=== PATIENT | female | born 1985 | race Caucasian/White ===

== ENCOUNTER → 2021-07-28 | Outpatient (CLI) | payer OTHER ==
--- NOTE | 2021-07-28 13:01 | RAD ---
EXAMINATION: MRI LEFT KNEE WITHOUT IV CONTRAST CLINICAL HISTORY: Left knee pain following injury. TECHNIQUE: Multiplanar multisequential images obtained through the knee without intravenous contrast. COMPARISON: 09/30/2005 FINDINGS: Images and motion degradation on axial sequences limits evaluation. MENISCI: Medial Meniscus: Intact Lateral Meniscus: Intact LIGAMENTS: ACL: Intact PCL: Redemonstration of complete PCL tear MCL: Appears intact but the femoral attachment is poorly visualized on axial images. No evidence of l igamentous laxity or subjacent marrow changes at the femoral insertion to suggest that the ligament i s torn. LCL Complex: Intact CARTILAGE: Medial Femoral Condyle: Small areas(s) of predominantly low grade (less than 50% thickness) cartilage loss and or fissuring with smaller area(s) of high grade (greater than 50% thickness) cartilage loss and or fissuring in the weightbearing portion of the condyle Medial Tibial Plateau: Normal Lateral Femoral Condyle: Normal Lateral Tibial Plateau: Normal Patella: No definite full-thickness defect on limited evaluation Trochlea: No definite full-thickness defect on limited evaluation TENDONS: Distal quadriceps and patellar tendons intact. Popliteus tendon intact. BONES AND MARROW: No evidence of acute fracture or suspicious marrow replacing process. MUSCLES: Muscle bulk and signal intensity within normal limits. JOINT FLUID AND SYNOVIUM: Partially visualized moderate joint effusion. No Felix's cyst. OTHER: Fiber irregularity and discontinuity in the mid substance of the medial patellofemoral ligamen t with surrounding soft tissue edema., consistent with complete tear. IMPRESSION: Findings consistent with complete tear in the mid substance of the medial patellofemoral ligament. No definitive evidence of medial collateral ligament injury on limited evaluation as described. Remote complete PCL tear. Electronically signed by: Chalino Breaux DO (07/28/2021 12:58 PM) [id number]
== END ==
LOC: MRI 09:31
PROVIDERS: ATTEND Registered Nurse
DX: S89.92XA Unspecified injury of left lower leg, initial encounter (principal); S83.522A Sprain of posterior cruciate ligament of left knee, initial encounter; M25.462 Effusion, left knee; X58.XXXA Exposure to other specified factors, initial encounter; Y93.89 Activity, other specified; Y92.89 Other specified places as the place of occurrence of the external cause; Y99.8 Other external cause status
CPT/HCPCS: 73721